=== PATIENT | female | born 2000 | race African-American/Black ===

== ENCOUNTER 2024-10-13 09:54 | Emergency (ER) | payer OTHER, SELFPAY ==
[~2024-10-13] VITALS: Ht 154.9 cm; Wt 88.6 kg
[2024-10-13 10:03] VITALS: TEMP 98
[2024-10-13] MEDS ORDERED: LEVOTAB10 PO (10:39)
[2024-10-13] MEDS ORDERED: KEPP250T5 PO (10:39)
[2024-10-13 10:40] LABS: BASO # 0.0 10^3/uL (0.0-0.2); BASO % 0.3 % (0.0-1.0); EOS # 0.0 10^3/uL (0.0-0.5); EOS % 0.5 % (0.0-3.0); LYMPH # 0.9 10^3/uL (1.5-5.0); LYMPH % 13.6 % (24.0-44.0); MONO # 0.4 10^3/uL (0.0-0.8); MONO % 5.9 % (2.0-8.0); NEUTROPHILS # 4.9 10^3/uL (1.5-8.5); NEUTROPHILS % 79.4 % (36.0-66.0); PLATELET COUNT, AUTOMATED 384 10^3/uL (150-450)
[2024-10-13] MEDS: levETIRAcetam INJection 500 MG in DEXTROSE 5% (D5W) MINI-BAG PLU 100 ML IV ONE (10:45)
[2024-10-13 10:59] LABS: ALT/SGPT 13 U/L (7.0-40); AST/SGOT 18 U/L (<34); CALCIUM LEVEL 9.4 MG/DL (8.5-10.1); CARBON DIOXIDE LEVEL 24 MMOL/L (20-31); CHLORIDE LEVEL 106 MMOL/L (98-107); CREATININE FOR GFR 0.91 MG/DL (0.55-1.30); GLOMERULAR FILTRATION RATE > 90.0 (>60); MAGNESIUM LEVEL 2.0 MG/DL (1.8-2.4); PHOSPHORUS LEVEL 3.2 MG/DL (2.5-4.9); POTASSIUM SERUM 4.0 MMOL/L (3.5-5.1); SODIUM LEVEL 143 MMOL/L (136-145)
[2024-10-13 11:25] LABS: HCG, SERUM QUALITATIVE NEGATIVE (NEGATIVE)
[2024-10-13] MEDS ORDERED: HOME MED LIST COMPLETE! XX SCH (11:35)
[2024-10-13 11:45] VITALS: BP 130/66; O2SAT 99
== END 2024-10-13 12:17 | disposition left against medical advice (07) ==
LOC: EDBD 09:54 → M ED 09:54
DX: G40.909 Epilepsy, unspecified, not intractable, without status epilepticus (principal); Z91.199 Patient's noncompliance with other medical treatment and regimen due to unspecified reason; Z53.20 Procedure and treatment not carried out because of patient's decision for unspecified reasons; Z79.899 Other long term (current) drug therapy
CPT/HCPCS: 80047; 80048; 80076; 82330; 83735; 84100; 84703; 85025; 93041; 94760; 96374; 99284; J1953